=== PATIENT | male | born 1975 | race Two or more races ===

== ENCOUNTER 2024-02-12 10:41 | Inpatient (IN) | payer OTHER ==
[~2024-02-12] VITALS: Ht 188 cm; Wt 94.3 kg
--- NOTE | 2024-02-12 12:15 | NUR ---
SE RECIBE PTE ALERTA Y ORIENTADO X3. REFIERE DOLOR EN EL ANO POR HEMORROIDES. PTE REFIERE QUE FUE A MINAYA GASTROENTEROLOGO EL DE Y BRINDO TX PARA ESTO LEONOR CONTINUA CON DOLOR
[2024-02-12] MEDS ORDERED: 0.9 % SODIUM CHLORIDE 1,000 ML IV SCH ×2 (12:30→18:00)
[2024-02-12] MEDS ORDERED: MEPERIDINE HCL/PF 50 MG/ML VIAL IM ONE (12:30)
[2024-02-12] MEDS ORDERED: ONDANSETRON HCL 2 MG/ML VIAL IV ONE (12:30)
[2024-02-12] MEDS ORDERED: ONDANSETRON HCL 2 MG/ML VIAL ONE (12:34)
[2024-02-12 12:57] LABS: HEMATOCRIT 39.5 % (39.0-48.0); HEMOGLOBIN 13.2 g/dL (13-16.00); MEAN CELL VOLUME 83.2 fL (80.0-100.00); MEAN CORPUSCULAR HEMOGLOBIN 27.9 pg (27.00-32.0); MEAN CORPUSCULAR HGB CONC 33.5 g/dl (32.0-36.0); PLATELET COUNT 329 K/uL (150-450); RED BLOOD COUNT 4.75 M/uL (4.00-6.00); RED CELL DISTRIBUTION WIDTH 13.3 % (11.5-14.5)
[2024-02-12 13:23] LABS: ALBUMIN 3.6 gm/dL (3.4-5.0); BILIRUBIN TOTAL 0.63 mg/dL (0.3-1.2); CALCIUM 9.1 mg/dL (8.5-10.1); CREATININE SERUM 1.19 mg/dL (0.70-1.30); GFR 65.81; GLOBULINA 3.6 G/DL (2.4-3.5); POTASSIUM 3.7 mEq/L (3.5-5.1); TOTAL PROTEIN 7.2 gm/dL (6.4-8.2)
--- NOTE | 2024-02-12 13:39 | NUR ---
SE ORIENTA PTE SOBRE TX A SEGUIR, EL MISMO REFIERE ENTENDER. SE SERGIO MUESTRA DE LAB, SE CANALIZA Y SE ADMINISTRA MED GABBY ORDEN MEDICA
[2024-02-12] MEDS ORDERED: PIPERACILLIN/TAZOBACTAM SODIUM 3.375 GM VIAL IV ONE ×2 (16:15→16:18)
[2024-02-12] MEDS ORDERED: ACETAMINOPHEN 500 MG GEL..CAP PO PRN (18:00)
[2024-02-12] MEDS ORDERED: KETOROLAC TROMETHAMINE 30 MG VIAL IU ONE (18:00)
[2024-02-12] MEDS ORDERED: MORPHINE SULFATE 2 MG/ML CARTRIDGE IV PRN (18:00)
[2024-02-12] MEDS ORDERED: PIPERACILLIN/TAZOBACTAM SODIUM 3.375 GM in DEXTROSE 5 % IN WATER 100 ML IV SCH (18:00)
[2024-02-12] MEDS ORDERED: KETOROLAC TROMETHAMINE 60 MG VIAL IM ONE (18:25)
[2024-02-12 18:31] VITALS: BP 122/66; O2SAT 98
[2024-02-12 20:02] LABS: PH,URINE 5.5 (5.0-8.0); URINE APPEARANCE Clear; URINE BILIRRUBIN Negative (NEGATIVE); URINE BLOOD Negative; URINE COLOR Yellow; URINE GLUCOSE Negative (NEGATIVE); URINE KETONE Negative (NEGATIVE); URINE LEUKOCYTE Negative; URINE NITRATE Negative; URINE PROTEIN Negative (NEGATIVE); URINE UROBILINOGEN 0.2 E.U./dl
[2024-02-12 20:06] LABS: URINE BACTERIA 6.1 uL (0.0-1933); URINE EPITHELIAL CELLS 1.4 uL (0.0-38.8); URINE WBC 2.2 uL (0.0-23.2)
[2024-02-12 20:18] LABS: URINE RBC 1.1 uL (0.0-20.8)
[2024-02-12 21:37] VITALS: BP 140/83; O2SAT 96
[2024-02-12 23:12] LABS: HEMATOCRIT 36.5 % (39.0-48.0); HEMOGLOBIN 12.2 g/dL (13-16.00); MEAN CELL VOLUME 84.3 fL (80.0-100.00); MEAN CORPUSCULAR HEMOGLOBIN 28.2 pg (27.00-32.0); MEAN CORPUSCULAR HGB CONC 33.4 g/dl (32.0-36.0); PLATELET COUNT 278 K/uL (150-450); RED BLOOD COUNT 4.33 M/uL (4.00-6.00); RED CELL DISTRIBUTION WIDTH 12.8 % (11.5-14.5)
[2024-02-13] VITALS: BP 103/68; O2SAT 97
[2024-02-13 07:10] LABS: INR 1.12; PARTIAL THROMBOPLASTIN TIME 33.6 SECONDS (22.0-34.0); PROTHROMBIN TIME 12.1 SECONDS (9.0-11.5)
[2024-02-13 08:00] VITALS: BP 114/66; O2SAT 100
[2024-02-13] MEDS ORDERED: MORPHINE SULFATE 4 MG/ML CARTRIDGE IV PRN (08:00)
[2024-02-13] MEDS ORDERED: FAMOTIDINE/PF 20 MG in 0.9 % SODIUM CHLORIDE 8 ML IV PUSH SCH (09:00)
[2024-02-13] MEDS ORDERED: IRON FUM,PS/FOLIC/BCOMP,C NO.9 1 CAP CAPSULE PO SCH (09:00)
[2024-02-13] MEDS ORDERED: ENOXAPARIN SODIUM 40 MG/0.4 ML SYRINGE SUBCUTANEO SCH (09:00)
[2024-02-13 16:24] VITALS: BP 112/71; O2SAT 97
[2024-02-14 00:20] VITALS: BP 100/65; O2SAT 100
[2024-02-14 08:00] VITALS: BP 127/79; O2SAT 99
[2024-02-14] MEDS ORDERED: TRAMADOL HCL 50 MG TABLET PO SCH (12:00)
[2024-02-14] MEDS ORDERED: DIBUCAINE 30 GM TUBE TOP SCH (12:00)
[2024-02-14 13:01] LABS: HEMATOCRIT 37.3 % (39.0-48.0); HEMOGLOBIN 12.5 g/dL (13-16.00); MEAN CELL VOLUME 84.7 fL (80.0-100.00); MEAN CORPUSCULAR HEMOGLOBIN 28.3 pg (27.00-32.0); MEAN CORPUSCULAR HGB CONC 33.5 g/dl (32.0-36.0); PLATELET COUNT 293 K/uL (150-450); RED BLOOD COUNT 4.41 M/uL (4.00-6.00); RED CELL DISTRIBUTION WIDTH 12.6 % (11.5-14.5)
[2024-02-14 13:58] LABS: ALBUMIN 3.1 gm/dL (3.4-5.0); BILIRUBIN TOTAL 0.65 mg/dL (0.3-1.2); CALCIUM 8.7 mg/dL (8.5-10.1); GFR 80.44; GLOBULINA 2.6 G/DL (2.4-3.5); MAGNESIUM 1.8 mg/dL (1.8-2.4); PHOSPHOROUS 2.8 mg/dL (2.5-4.9); POTASSIUM 4.41 mEq/L (3.5-5.1); TOTAL PROTEIN 5.7 gm/dL (6.4-8.2)
[2024-02-14 16:00] VITALS: BP 147/80; O2SAT 99
[2024-02-15] VITALS: BP 125/78; O2SAT 98
[2024-02-15 08:00] VITALS: BP 132/88; O2SAT 100
[2024-02-15 16:00] VITALS: BP 140/85; O2SAT 99
[2024-02-16 06:29] LABS: HEMATOCRIT 34.8 % (39.0-48.0); HEMOGLOBIN 11.9 g/dL (13-16.00); MEAN CELL VOLUME 82.8 fL (80.0-100.00); MEAN CORPUSCULAR HEMOGLOBIN 28.3 pg (27.00-32.0); MEAN CORPUSCULAR HGB CONC 34.2 g/dl (32.0-36.0); PLATELET COUNT 314 K/uL (150-450); RED BLOOD COUNT 4.21 M/uL (4.00-6.00); RED CELL DISTRIBUTION WIDTH 13.1 % (11.5-14.5)
[2024-02-16 07:25] LABS: ALBUMIN 2.9 gm/dL (3.4-5.0); BILIRUBIN TOTAL 0.38 mg/dL (0.3-1.2); CALCIUM 8.4 mg/dL (8.5-10.1); CREATININE SERUM 1.2 mg/dL (0.70-1.30); GFR 65.18; GLOBULINA 2.3 G/DL (2.4-3.5); MAGNESIUM 1.9 mg/dL (1.8-2.4); POTASSIUM 4.3 mEq/L (3.5-5.1); TOTAL PROTEIN 5.2 gm/dL (6.4-8.2)
[2024-02-17 08:00] VITALS: BP 144/85; O2SAT 99
[2024-02-17] MEDS ORDERED: TRAMADOL HCL 50 MG TABLET PO PRN (09:15)
[2024-02-17] MEDS ORDERED: INTEGRA PLUS C1 EACH PO (13:26)
[2024-02-17] MEDS ORDERED: DIBUCAINE30 GM TOP (13:27)
[2024-02-17] MEDS ORDERED: COLACE100 MG PO (13:27)
[2024-02-17] MEDS ORDERED: TRAM1TAB98 PO (13:28)
[2024-02-17] MEDS ORDERED: INTESTINEX680 M1 PO (13:28)
[2024-02-17] MEDS ORDERED: AMOX-CLAV 875-1 EAC1 PO (13:28)
[2024-02-17] MEDS ORDERED: PANTOPRAZOLE SO20 MG PO (13:29)
[2024-02-17 22:05] LABS: chla t Negative (Negative); neiss Negative (Negative)
== END 2024-02-17 14:47 | disposition home or self-care (01) | DRG 395 ==
LOC: ER 10:43 → SURH 18:42 → SURG 18:42 → SURH 19:44
PROVIDERS: General Practice; Internal Medicine; ADMIT Internal Medicine; ATTEND Internal Medicine
PROC: BW21YZZ Computerized Tomography (CT Scan) of Abdomen and Pelvis using Other Contrast (ICD-10-PCS; principal; 2024-02-12)
DX: K61.1 Rectal abscess (principal); K62.89 Other specified diseases of anus and rectum; D64.9 Anemia, unspecified

== ENCOUNTER 2024-05-13 05:41 | Day surgery (SDC) | payer OTHER ==
[~2024-05-13 05:41] MED LIST: AMOX-CLAV 875-1 EAC1 PO; COLACE100 MG PO; DIBUCAINE30 GM TOP; INTEGRA PLUS C1 EACH PO; INTESTINEX680 M1 PO; PANTOPRAZOLE SO20 MG PO; TRAM1TAB98 PO
[2024-05-13] MEDS ORDERED: METRONIDAZOLE/SODIUM CHLORIDE 500 MG/100 ML PIGGYBACK IV ONE ×2 (07:29→11:15)
[2024-05-13] MEDS ORDERED: CEFTRIAXONE SODIUM 2,000 MG VIAL ONE (07:29)
[2024-05-13] MEDS ORDERED: LIDOCAINE HCL 1%/EPINEPHRINE 20ML VIAL IJ ONE (08:46)
[2024-05-13] MEDS ORDERED: BUPIVACAINE HCL/Mpf 0.5% 10ML VIAL ONE (08:46)
[2024-05-13] MEDS ORDERED: POVIDONE-IODINE 118 ML BOTT TOP ONE ×2 (08:46→11:15)
[2024-05-13] MEDS ORDERED: HEMOSTATIC MATRIX 1 KIT KIT TOP ONE ×2 (08:46→11:15)
[2024-05-13] MEDS ORDERED: DIBUCAINE 30 GM TUBE ONE (08:46)
[2024-05-13] MEDS ORDERED: PERCOCET 5-3251 EACH PO (09:42)
[2024-05-13] MEDS ORDERED: RECTICARE30 GM TOP (09:43)
[2024-05-13] MEDS ORDERED: DIBUCAINE 30 GM TUBE RECTAL ONE (11:15)
[2024-05-13] MEDS ORDERED: CEFTRIAXONE SODIUM 2,000 MG VIAL IV ONE (11:15)
== END 2024-05-13 13:15 | disposition home or self-care (01) ==
LOC: CIR.AMB 05:41
PROVIDERS: ATTEND Surgery
DX: K60.322 Anal fistula, complex, persistent (principal)